=== PATIENT | female | born 1995 | race Caucasian/White ===

== ENCOUNTER 2017-09-14 23:30 | Inpatient (IN) | payer SELFPAY ==
[~2017-09-14] VITALS: Ht 163 cm; Wt 65.8 kg
[2017-09-14 23:40] VITALS: BP 116/57
[2017-09-14] MEDS ORDERED: METOCLOPRAMIDE HCL 5 MG/ML 2 ML VIAL IVP PRN (23:45)
[2017-09-14] MEDS ORDERED: CITRIC ACID/SODIUM CITRATE 30 ML SOLUTION UDCUP PO PRN (23:45)
[2017-09-14] MEDS ORDERED: RINGERS SOLUTION,LACTATED 1,000 ML IV SCH (23:45)
[2017-09-14] MEDS ORDERED: RINGERS SOLUTION,LACTATED 1,000 ML IV PRN (23:45)
[2017-09-14] MEDS ORDERED: LIDOCAINE HCL/PF 1% 30 ML VIAL INJ PRN (23:45)
[2017-09-14] MEDS ORDERED: OXYTOCIN 30 UNITS/LACT RINGERS 500 ML IV ONE (23:45)
[2017-09-14] MEDS ORDERED: FentaNYL CITRATE-PF 100 MCG/2 ML VIAL IVP PRN ×2 (23:45)
[2017-09-15] MEDS ORDERED: FentaNYL CITRATE-PF 100 MCG/2 ML VIAL ONE (00:18)
[2017-09-15] MEDS ORDERED: BUPIVACAINE HCL/PF 0.25% 10 ML VIAL ONE (00:18)
[2017-09-15 00:28] LABS: BASOPHILS % (AUTO) 1.1 % (0.0-2.0); EOSINOPHILS % (AUTO) 0.7 % (1.0-6.0); HEMATOCRIT 36.7 % (36-46); HEMOGLOBIN 12.9 g/dL (12.0-16.0); MEAN CORPUSCULAR HEMOGLOBIN 32.3 pg (26.0-34.0); MEAN CORPUSCULAR HGB CONC 35.1 G/dL (31.0-37.0); MEAN CORPUSCULAR VOLUME 92 fL (80-100); MONOCYTES # (AUTO) 0.9 K/uL (0.1-1.0); MONOCYTES % (AUTO) 5.6 % (2.0-9.0); NEUTROPHILS # (AUTO) 12.3 K/uL (1.8-7.7); NEUTROPHILS % (AUTO) 74.6 % (40.0-70.0); PLATELET COUNT (AUTO) 158 K/uL (150-450); RED CELL DISTRIBUTION WIDTH 12.7 % (11.5-14.5)
[2017-09-15] MEDS ORDERED: ONDANSETRON HCL 4 MG/2 ML VIAL IVP PRN (00:45)
[2017-09-15] MEDS ORDERED: DiphenhydrAMINE HCL 50 MG/ML VIAL IVP PRN (00:45)
[2017-09-15] MEDS ORDERED: NALOXONE HCL 0.4 MG/ML VIAL IVP PRN (00:45)
[2017-09-15] MEDS ORDERED: ACETAMINOPHEN/CODEINE 300-30 MG TABLET PO PRN ×2 (01:15)
[2017-09-15] MEDS ORDERED: BENZOCAINE 20%/MENTHOL 56 GM SPRAY CANISTER TP PRN (01:15)
[2017-09-15] MEDS ORDERED: LANOLIN 7 GM OINTMENT TP PRN (01:15)
[2017-09-15] MEDS ORDERED: GLYCERIN/WITCH HAZEL LEAF 40 PADS JAR TP PRN (01:15)
[2017-09-15 01:25] LABS: HIV RAPID SCREEN NON-REACTIVE (NONREACTIVE)
[2017-09-15] MEDS: IBUPROFEN 800 MG TABLET PO SCH ×4 (02:14→20:34)
[2017-09-15 02:59] LABS: RUBELLA SCREEN (IGG) IMMUNE (IMMUNE)
[2017-09-15 03:14] LABS: RAPID PLASMA REAGIN NONREACTIVE (NONREACTIVE)
[2017-09-15] MEDS: MAGNESIUM HYDROXIDE SUSPENSION 30 ML UDCUP PO SCH ×2 (08:22→20:34)
[2017-09-16] MEDS: IBUPROFEN 800 MG TABLET PO SCH ×2 (05:32→13:28)
[2017-09-16] MEDS ORDERED: IBUP-2071 PO (09:08)
[2017-09-16] MEDS ORDERED: DSS100 PO (09:09)
== END 2017-09-16 13:25 | disposition home or self-care (01) | DRG 775 ==
LOC: 4S 23:30 → PREOBSVTOIN 09-24 23:52
PROVIDERS: ADMIT Obstetrics & Gynecology; ATTEND Obstetrics & Gynecology
PROC: 10D07Z6 Extraction of Products of Conception, Vacuum, Via Natural or Artificial Opening (ICD-10-PCS; principal; 2017-09-15)
DX: O76 Abnormality in fetal heart rate and rhythm complicating labor and delivery (principal); O77.0 Labor and delivery complicated by meconium in amniotic fluid; O64.0XX0 Obstructed labor due to incomplete rotation of fetal head, not applicable or unspecified; O75.89 Other specified complications of labor and delivery; O69.1XX0 Labor and delivery complicated by cord around neck, with compression, not applicable or unspecified; Z88.0 Allergy status to penicillin; Z3A.39 39 weeks gestation of pregnancy; Z37.0 Single live birth
CPT/HCPCS: 80307; 80349; 86592; 86762; 86850; 86900; 86901; 87340; J2590; J3010; J3490